=== PATIENT | male | born 1985 | race Hispanic/Latino ===

== ENCOUNTER 2018-03-20 20:28 | Emergency (ER) | payer OTHER ==
[2018-03-20 20:28] VITALS: BMI 39.5
[2018-03-20 20:44] VITALS: RESP 18; TEMP 98
--- NOTE | 2018-03-20 21:20 | ED PDOC ---
Arrival/HPI - General Historian: Patient <Darryl Shukla - Last Filed: 03/20/18 23:44> - History of Present Illness Time/Duration: 4-6 hours Symptom Onset: Gradual Symptom Course: Improving Quality: Throbbing Severity Level: 6 Activities at Onset: Rest <Federico Henriquez - Last Filed: 03/21/18 00:30> - General Chief Complaint: Headache Time Seen by Provider: 03/20/18 20:29 - History of Present Illness Narrative History of Present Illness (Text): 03/20/18 21:06 PGY-[address] Shukla Patient is a 32 year old male with PMHx HTN who presents with headache and dizziness. Patient reports that after dropping his kids off at school and heading to work he began to experience a throbbing headache in a band across the area of his temples and eyes. The pain began to worsen and he began to feel dizzy at which point the patient came to the ED to be evaluated. He also admits to vomiting twice. The patient came to [facility] in 05/2016 with the same headache pattern he is currently experiencing and CT revealed a suspected L cerebellar arachnoid cyst which was benign. He also has not taken his blood pressure medication in two months due to not going to the pharmacy to have his prescription refilled, does not take his BP at home. He states that he does get headaches rather frequently, but not to the severity of what he is experiencing today and without dizziness/vomiting. He denies any trauma or falls, feeling faint, or passing out. His current pain is a 6/10, improved from earlier with Excedrin. (Federico Henriquez) Modifying Factors (Text): 03/20/18 21:21 Pain worse in light, better in dark (Federico Henriquez) Past Medical History - Provider Review Nursing Documentation Reviewed: Yes - Infectious Disease Hx of Infectious Diseases: None - Tetanus Immunization Tetanus Immunization: Up to Date - Cardiac Hx Cardiac Disorders: Yes Hx Hypertension: Yes - Pulmonary Hx Respiratory Disorders: Yes Hx Sleep Apnea: Yes - Neurological Hx Neurological Disorder: No - HEENT Hx HEENT Disorder: No - Renal Hx Renal Disorder: No - Endocrine/Metabolic Hx Endocrine Disorders: No - Hematological/Oncological Hx Blood Disorders: No - Integumentary Hx Dermatological Disorder: No - Musculoskeletal/Rheumatological Hx Musculoskeletal Disorders: No - Gastrointestinal Hx Gastrointestinal Disorders: No - Genitourinary/Gynecological Hx Genitourinary Disorders: No - Psychiatric Hx Psychophysiologic Disorder: No Hx Substance Use: No - Surgical History Hx Tonsillectomy: Yes Other/Comment: uvpp (sleep apnea) - Anesthesia Hx Anesthesia: No <Federico Henriquez - Last Filed: 03/21/18 00:30> Family/Social History - Physician Review Nursing Documentation Reviewed: Yes Family/Social History: Unknown Family HX Smoking Status: Former Smoker Hx Alcohol Use: No Hx Substance Use: No <Federico Henriquez - Last Filed: 03/21/18 00:30> Allergies/Home Meds <Darryl Shukla - Last Filed: 03/20/18 23:44> <Federico Henriquez - Last Filed: 03/21/18 00:30> Allergies/Adverse Reactions: Allergies No Known Allergies Allergy (Verified 03/20/18 20:33) Home Medications: Home Meds Medication Instructions Recorded Confirmed Valsartan/Hydrochlorothiazide 1 tab PO DAILY 03/20/18 03/20/18 [Diovan Hct 160-12.5 mg Tab] Review of Systems - Physician Review All systems were reviewed & negative as marked: Yes - Review of Systems Constitutional: Other (no chills). absent: Fatigue, Fevers (no chills) Eyes: Vision Changes (blurry vision earlier which has resolved), Photophobia ENT: absent: Hearing Changes, Sore Throat, Rhinorrhea Respiratory: absent: SOB, Cough, Wheezing Cardiovascular: absent: Chest Pain, Palpitations Gastrointestinal: Vomiting. absent: Abdominal Pain, Stool Changes, Constipation , Diarrhea, Nausea Genitourinary Male: absent: Dysuria, Frequency Musculoskeletal: absent: Arthralgias, Back Pain Neurological: Headache, Dizziness. absent: Focal Weakness, Gait Changes, Speech Changes, Facial Droop Psychiatric: absent: Anxiety, Depression <Federico Henriquez - Last Filed: 03/21/18 00:30> Physical Exam Vital Signs Reviewed: Yes Temperature: Afebrile Blood Pressure: Normal Pulse: Regular Respiratory Rate: Normal Appearance: Positive for: Well-Appearing, Non-Toxic Pain Distress: Mild Mental Status: Positive for: Alert and Oriented X 3 - Systems Exam Head: Present: Atraumatic, Normocephalic Pupils: Present: PERRL Extroacular Muscles: Present: EOMI Conjunctiva: Present: Normal Mouth: Present: Moist Mucous Membranes Pharnyx: Present: Normal. No: ERYTHEMA, EXUDATE Nose (External): Present: Atraumatic Respiratory/Chest: Present: Clear to Auscultation, Good Air Exchange. No: Respiratory Distress, Accessory Muscle Use, Wheezes Cardiovascular: Present: Regular Rate and Rhythm, Normal S1, S2, Peripheal Pulses Present. No: Murmurs Abdomen: Present: Normal Bowel Sounds. No: Tenderness, Distention, Peritoneal Signs, Rebound, Guarding Upper Extremity: Present: Normal Inspection. No: Cyanosis, Edema Lower Extremity: Present: Normal Inspection, NORMAL PULSES. No: Edema Neurological: Present: GCS=15, CN II-XII Intact, Speech Normal, Motor Func Grossly Intact, Normal Sensory Function, Normal Cerebellar Funct, Memory Normal Skin: Present: Warm, Dry, Normal Color. No: Rashes Psychiatric: Present: Alert, Oriented x 3, Normal Insight, Normal Concentration <Federico Henriquez - Last Filed: 03/21/18 00:30> Vital Signs Temp Pulse Resp BP Pulse Ox 03/20/18 23:45 82 18 135/89 100 03/20/18 20:38 98.0 F 78 18 131/93 H 95 Medical Decision Making <Darryl Shukla - Last Filed: 03/20/18 23:44> <Federico Henriquez - Last Filed: 03/21/18 00:30> ED Course and Treatment: In agreement with resident note which contains more details about the patient. Patient was seen and evaluated with resident. Came up with plan and treatment together. 32 year old male presents complaining of throbbing headache associated with dizziness. 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 MD/ has examined the patient and agrees with the treatment plan. - Scribe Statement The provider has reviewed the documentation as recorded by the Scribe <Darryl Shukla - Last Filed: 03/20/18 23:44> <Federico Henriquez - Last Filed: 03/21/18 00:30> - Scribe Statement Stef Ko Provider Scribe Attestation: All medical record entries made by the Scribe were at my direction and personally dictated by me. I have reviewed the chart and agree that the record accurately reflects my personal performance of the history, physical exam, medical decision making, and the department course for this patient. I have also personally directed, reviewed, and agree with the discharge instructions and disposition. (Darryl Shukla) Disposition/Present on Arrival - Present on Arrival Any Indicators Present on Arrival: No - Disposition Have Diagnosis and Disposition been Completed?: Yes Disposition Time: 23:44 Patient Plan: Discharge <Darryl Shukla - Last Filed: 03/20/18 23:44> - Present on Arrival Any Indicators Present on Arrival: No History of DVT/PE: No History of Uncontrolled Diabetes: No Urinary Catheter: No History of Decub. Ulcer: No History Surgical Site Infection Following: None <Federico Henriquez - Last Filed: 03/21/18 00:30> - Disposition Diagnosis: Tension headache Disposition: HOME/ ROUTINE Condition: GOOD Discharge Instructions (ExitCare): Tension Headache (DC) Additional Instructions: Continue current medications/follow up with your doctor as needed Referrals: Antelmo Romero MD [Primary Care Provider] - Follow up with primary Forms: [employer] (Hungarian)
[2018-03-21 00:23] VITALS: BP 135/89; PULSE 82; O2SAT 100
--- NOTE | 2018-03-21 08:38 | CT ---
Date of service: 03/20/2018 PROCEDURE: CT HEAD WITHOUT CONTRAST. HISTORY: Headache COMPARISON: 06/08/2016 TECHNIQUE: Axial computed tomography images were obtained through the head/brain without intravenous contrast. Coronal and sagittal reconstructed images. Radiation dose: Total exam DLP = 937.79 mGy-cm. This CT exam was performed using one or more of the following dose reduction techniques: Automated exposure control, adjustment of the mA and/or kV according to patient size, and/or use of iterative reconstruction technique. FINDINGS: HEMORRHAGE: No intracranial hemorrhage. BRAIN: No mass effect or edema. Arachnoid cyst identified adjacent to the left cerebellar hemisphere patent left frontal region. 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 VENTRICLES: Unremarkable. No hydrocephalus. CALVARIUM: Unremarkable. PARANASAL SINUSES: Unremarkable as visualized. No significant inflammatory changes. MASTOID AIR CELLS: Unremarkable as visualized. No inflammatory changes. OTHER FINDINGS: None. IMPRESSION: No acute intracranial abnormalities. No significant findings to account for the clinical presentation. Additional benign and/or incidental findings described above. No significant interval change compared to the prior examination(s). Concordant results (preliminary interpretation) provided by [facility]. Procedure Completed: 21:34. Preliminary ([facility]) Report: Dictated and Authenticated: 21:51. Final Interpretation: 08:38. March 21, 2018.
== END 2018-03-20 23:45 | disposition home or self-care (01) ==
LOC: ED 20:28
DX: G44.209 Tension-type headache, unspecified, not intractable (principal); I10 Essential (primary) hypertension; Z87.891 Personal history of nicotine dependence

== ENCOUNTER 2018-08-24 09:25 | Outpatient (CLI) | payer OTHER | END 2018-08-24 09:26 | disposition home or self-care (01) | LOC: LAB 09:25 ==